=== PATIENT | male | born 1965 | race American Indian/Alaskan Native ===

== ENCOUNTER 2018-12-15 09:56 | Outpatient (CLI) | payer OTHER ==
--- NOTE | 2018-12-15 11:09 | XRay Report ---
LUMBOSACRAL SPINE, 2 VIEWS INDICATION: Chronic lower back pain. COMPARISON: None. IMPRESSION: Normal alignment. 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 The remaini ng disc levels and facet joints are unremarkable. No acute osseous or soft tissue abnormality. LEFT KNEE, 3 VIEWS INDICATION: Left knee pain. COMPARISON: None. IMPRESSION: No acute osseous or soft tissue abnormality. No significant DJD. Signer Name: Teofilo Cleaning Jr, MD Signed: 12/15/2018 11:04 AM Workstation Name: [id number]
== END 2018-12-15 09:57 | disposition home or self-care (01) ==
LOC: XRAY 09:56
PROVIDERS: ATTEND Internal Medicine
DX: M47.817 Spondylosis without myelopathy or radiculopathy, lumbosacral region (principal); M25.562 Pain in left knee
CPT/HCPCS: 72100